=== PATIENT | male | born 1970 | race Caucasian/White ===

== ENCOUNTER 2016-07-08 18:53 | Emergency (ER) | payer OTHER | END 2016-07-08 20:15 | LOC: FER 18:53 | DX: S00.81XA Abrasion of other part of head, initial encounter (principal); R68.84 Jaw pain; J44.9 Chronic obstructive pulmonary disease, unspecified; F17.210 Nicotine dependence, cigarettes, uncomplicated; Z23 Encounter for immunization; Z88.5 Allergy status to narcotic agent; Z98.890 Other specified postprocedural states; W19.XXXA Unspecified fall, initial encounter | CPT/HCPCS: 70150; 90471; 90715 ==